=== PATIENT | female | born 1990 | race Caucasian/White ===

== ENCOUNTER 2017-09-17 08:59 | Emergency (ER) | END 2017-09-17 17:26 | disposition home or self-care (01) ==

== ENCOUNTER 2017-09-20 12:58 | Emergency (ER) | END 2017-09-20 15:45 | disposition home or self-care (01) ==

== ENCOUNTER 2017-09-25 09:00 | Emergency (ER) | END 2017-09-25 13:29 | disposition home or self-care (01) ==

== ENCOUNTER 2018-01-12 20:20 | Emergency (ER) | END 2018-01-13 01:11 | disposition home or self-care (01) ==

== ENCOUNTER 2018-01-19 07:09 | Day surgery (SDC) | END 2018-01-19 12:30 | disposition home or self-care (01) ==